=== PATIENT | female | born 1975 | race Caucasian/White ===

== ENCOUNTER 2019-08-08 14:12 | Emergency (ER) | payer OTHER, SELFPAY ==
[2019-08-08 14:27] VITALS: BP 110/68; PULSE 84; RESP 16; TEMP 37.3; O2SAT 99
--- NOTE | 2019-08-08 14:32 | ED.GENADULT ---
HPI - General Adult General Chief complaint: Extremity Injury, Upper Stated complaint: right thigh pain/sore throat Time Seen by Provider: 08/08/19 14:33 Source: patient and RN notes reviewed Limitations: no limitations History of Present Illness HPI narrative: This is a 44 years old female presented office for evaluation of right thigh injury yesterday morning. Stated she was moving a couch and dropped on her right thigh. Complaint of pain however she able to bear weight. Denies any numbness or tingling in her lower extremities. Denies history of right thigh surgery or fracture. Admits to history of right foot fracture from rolling her ankle about 3 years ago. No treatment prior to arrival. Related Data Home Medications Medication Instructions Recorded Confirmed No Home Medications 08/08/19 08/08/19 Allergies Allergy/AdvReac Type Severity Reaction Status Date / Time Iodinated Contrast Media Allergy Severe Rash Verified 08/08/19 14:29 Review of Systems Review of Systems: Narrative: CONSTITUTIONAL: Denies feeling ill ENT: Reports sore throat with slight sinus congestion CARDIOVASCULAR: Denies chest pain RESPIRATORY: Denies cough GASTROINTESTINAL: Denies abdominal pain, nausea, vomiting, diarrhea. GENITOURINARY: Denies urinary symptoms SKIN: Reports bruising on her right thigh MUSCULOSKELETAL: Reports right thigh pain with knot and bruising where the injury happended. NEUROLOGIC: Denies lightheaded PMFSH Social History Social History (Updated 08/08/19 @ 14:48 by NABILA Thomas) Smoking status: Never smoker Gender identity (if verbalized by the patient): Female Comments At time of signature, I agree with nursing past medical, surgical, social and family history. There is no relevant family history pertinent to the presenting complaint. Exam Narrative: Exam Narrative: GENERAL: This is a well-nourished, well-developed patient, in no apparent distress. EYES: Sclera clear/white. Vision is grossly intact. NOSE: External nose normal with no obvious nasal discharge, nares without redness, no rhinorrhea. THROAT: Mucous membranes moist, posterior pharynx clear. NECK: Neck supple, non-tender without lymphadenopathy, masses or thyromegaly. CARDIOVASCULAR: Regular rate and rhythm without murmurs, gallops, or rubs. RESPIRATORY: Clear to auscultation. Breath sounds equal bilaterally. No wheezes, rales, or rhonchi. GASTROINTESTINAL: Abdomen soft, non-tender, nondistended. Bowel sounds are active. No guarding. NEURO: awake, alert, and oriented to person, place and time. There were no obvious focal neurologic abnormalities. Steady gait EXTREMITIES: Bilateral legs is symmetrical without obvious deformity. Right mid anterior thigh noted a localized ecchymosis with tenderness to palpation. No erythema or warmth to touch. No obvious skin abrasion. Normal bilateral knees reflex. Deepak Coma Scale Eye Opening: Spontaneous 4 [place] Coma Scale Motor: Obeys Commands 6 Deepak Coma Scale Verbal: Oriented 5 Course Vital Signs Vital signs: Vital Signs Temperature 99.1 F 08/08/19 14:27 Pulse Rate 84 08/08/19 14:27 Respiratory Rate 16 08/08/19 14:27 Blood Pressure 110/68 08/08/19 14:27 Pulse Oximetry 99 08/08/19 14:27 Temperature 99.1 F 08/08/19 14:27 Pulse Rate 84 08/08/19 14:27 Respiratory Rate 16 08/08/19 14:27 Blood Pressure 110/68 08/08/19 14:27 Pulse Oximetry 99 08/08/19 14:27 Medical Decision Making MDM Narrative Medical decision making narrative: X-ray is not indicated at this time since injury appears superficial with no obvious deformity without excruciating pain. Patient agree with plan. Discharge instructions reviewed with patient, as well as provided in writing per nursing staff. The instructions also include specific and strict return/GO TO THE ER as well as f/u information. All questions have been answered, and the patient deny any further questions wi
== END 2019-08-08 14:54 | disposition home or self-care (01) ==
PROVIDERS: Emergency Provider Nurse Practitioner; PCP Nurse Practitioner Adult Health
DX: S70.11XA Contusion of right thigh, initial encounter (principal); W20.8XXA Other cause of strike by thrown, projected or falling object, initial encounter
CPT/HCPCS: 99212; G0463

== ENCOUNTER → 2021-05-10 03:29 | Outpatient (CLI) | payer OTHER, SELFPAY ==
[2021-05-11 12:59] LABS: SARS-CoV-2 RNA PCR Negative (Negative)
== END ==
PROVIDERS: PCP Nurse Practitioner Adult Health; Visit Provider Podiatrist Foot & Ankle Surgery
DX: Z01.812 Encounter for preprocedural laboratory examination (principal); Z20.822 Contact with and (suspected) exposure to COVID-19
CPT/HCPCS: C9803; U0003; U0005

== ENCOUNTER 2021-05-11 01:10 | Day surgery (SDC) | payer OTHER, SELFPAY ==
[2021-05-03 13:08] VITALS: BMI 32.9
--- NOTE | 2021-05-03 13:20 | PC.NURSE ---
Report to the Outpatient Waiting Room, entrance under the green pavilion located off [facility], at time 1200 on date 05/11/21. OR Time: 1400. - You and your visitor will be asked a series of questions to screen for COVID 19 for your protection. - A mask is required within the hospital. - Only one visitor is allowed at this time. Patient visitors will be guided where to wait when not with patient. Preoperative COVID Testing Requirements: No COVID Test needed if: (proof is required; if not received patient will have Rapid Test prior to entry) - Patient has received COVID Vaccine at least 14 days prior to procedure date or - Patient has positive COVID test result within last 90 days of surgery date. COVID Test needed if above criteria is not met If not COVID vaccinated a COVID test must be conducted within 72 hours of surgery and patient is asked to isolate self from time of testing until procedure. You will go to the [facility] for your COVID testing. The [facility] is located at the corner of [address] [facility]. COVID TEST 05/10 [facility] 0730 You will only be called if COVID results are positive and your surgeon may reschedule your elective surgery date. Patients may have clear liquids (water, carbonated beverages, clear teas, apple juice) until 3 hours prior to surgery with a maximum of 20 ounces. - No food from midnight until time of surgery - Infants may have breast milk until 4 hours before surgery, infant formula 6 hours prior to surgery. - Children will be allowed to drink immediately following surgery. If applicable, please bring a bottle or sippy cup to assist with drinking. Juice, water, soda, and popsicles are readily available. For infants on formula, please bring formula the day of surgery. Pacifiers are allowed. Take the following medications with a SIP of water the morning of surgery: NONE Medications to discontinue per physician: EXCEDRNADIR MIGRAINE Date to take last dose: PER DR. DUMONT (5 DAYS PRE-OP) Please no make-up, nail malay, hairspray, perfume, deodorant, or body powder the day of surgery. No jewelry (including any body piercings) or valuables the day of surgery, leave them at home. Please take a shower or bath the night before, or the morning of, surgery with an antibacterial soap. Wear comfortable, loose fitting clothing. Children are encouraged to wear pajamas. - Jewelry must be removed prior to entering the operating room. Rings and piercings that are not removed may be cut off. - The hospital will not accept responsibility for valuables. - Please leave all valuables, including medications, at home the day of surgery. If you are going home after surgery, a licensed regional owner operator truck driver must drive you home. - NO public transportation without another adult. - We recommend that an adult stay with you for 24 hours following discharge. - We also recommend that you do not drive, make important decision, drink alcoholic beverages, or take any drugs that were not prescribed by your health care provider for at least 24 hours after your discharge time. For Pediatric surgeries, we recommend two adults accompany the child home (only one inside the building at this time). Follow any additional instructions given to you from your surgeon. Telephone instructions given to JAMI SANCHEZ and asked if any additional questions and then verbalized understanding. Patient advised to call surgeon office or pre surgery nurse liaison [phone] if any additional questions.
[2021-05-11] VITALS (9 sets, daily range): BP systolic 112–155; BP diastolic 74–95; PULSE 67–96; RESP 12–18; TEMP 36.2–36.3; O2SAT 99–100
--- NOTE | 2021-05-11 07:23 | WPDHPUPDATE1 ---
History and Physical Update Update Date/Time: 05/11/21 07:23 History and Physical has been reviewed, including an updated exam of the patient. There are NO changes in the patient's condition. Risks, benefits, and alternatives have been discussed and questions answered. Patient agrees to proceed with procedure.
[2021-05-11] MEDS: LACTATED RINGERS 1,000 ML 30 ML IV CONT ×2 (13:18→15:48)
--- NOTE | 2021-05-11 13:28 | WPDANESEPPF ---
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 PMFSH Past Medical History Medical History (Updated 05/11/21 @ 13:28 by Mihai Vazquez MD) Obesity Surgical History Surgical History (Updated 05/11/21 @ 13:29 by Mihai Vazquez MD) History of appendectomy History of bladder surgery History of cholecystectomy Social History Social History Smoking status: Never smoker Alcohol intake: current Alcohol use details: COUPLE/MONTH Substance use: never Substance use type: does not use Gender identity (if verbalized by the patient): Female Spiritual care concerns: No Anes - Eval Final PreProcedure Day of Procedure 05/11/21 13:28 Patient weight: obese Heart: regular rate and rhythm Lungs: clear to auscultation Airway: Mallampati scale class II Neurological: alert and oriented Last oral intake: >/= 8 hours ASA classification: II Emergent: no Anesthetic plan: proceed Anesthesia type and monitoring: general LMA and standard monitoring Results Review: All pre-operative results and documents have been reviewed as part of the pre-operative evaluation. Informed Consent: The patient's anesthetic plan and its attendant risks and benefits were discussed with the patient/family/POA. Questions were solicited and answers provided to the satisfaction of the patient/family/POA.
[2021-05-11] MEDS: ceFAZolin 2 GM/D5W 50 ML 2 GM/50 ML BAG IVPB (14:07)
[2021-05-11] MEDS: LIDOCAINE HCL 2% PF INJ 5 ML VIAL 10 ML INFILTRATE (14:14)
--- NOTE | 2021-05-11 14:57 | P.OP_ITS ---
Procedure Note - Detailed Date of Procedure 05/11/21 Pre-op Diagnosis Worley's neuroma right foot Post-op Diagnosis same Procedure Performed Excision of Mortons Neuroma right foot Surgeon Ethan Pierson JR, DPM Anesthesia general and local Description of Procedure Under mild sedation, the patient was brought in to the operating room, placed on the operating table in the supine position. A pneumatic ankle tourniquet was placed about the patient's right ankle. Following general anesthesia, local anesthesia was obtained about the right foot with 2% Lidocaine plain and 0.5% Marcaine plain. The foot was then scrubbed, prepped, and draped in the usual aseptic manner. An Esmarch bandage was then used to exsanguinate the patient's foot and the pneumatic ankle tourniquet was then inflated. An incision was made along the dorsal 3rd inter metatarsal space. All bleeders were cauterized as necessary. The Deep transverse intermetatarsal ligament was severed. Next Dissection was continued deep to the plantar nerve which was hypertrophied and amorphous. It was dissected proximal to the central metatarsal shaft area and transected next the distal branches were dissected and transected to the affected third and fourth digits. The neural tissue was sent for gross and histo. The deep subcutaneous tissue was reapproximated with 3.0 Vicryl and the skin was reapproximated with 4.0 Monocryl. Upon completion of the procedure, the dorsal incision was dressed with Steri- Strips, Adaptic, 4x4s, Kerlix, and Coban. The pneumatic ankle tourniquet was then deflated and a prompt hyperemic response was noted to all digits of the right foot. The surgical shoe was then applied. The patient did very well with the procedure and the anesthesia. She was transferred to the recovery room with vital signs stable and vascular status intact to all toes of the affected foot. Following a period of postoperative monitoring, the patient will be discharged home on the following written and oral postoperative instructions: 1. The patient should keep the dressing clean, dry, and intact. Use a cast protector bag with showers. 2. The patient will be strictly protected weight bearing with a surgical shoe. 3. Patient should ice and elevate the right foot when at rest. 4. The patient is to contact Dr. Pierson for all postop care and if any problems arise. 5. Prescriptions were written for Percocet 5/325 dispensed 40 to be taken 1 p.o. q.4-6 hours as needed for severe pain. Estimated Blood Loss 1 Drains No Packing No Pathology yes Complications No immediate complications Condition stable Disposition same day
[2021-05-11] MEDS: SCOPOLAMINE 1.5 MG PATCH TRANSDERM (15:20)
[2021-05-11] MEDS: ONDANSETRON INJ 4 MG/2 ML VIAL IV PUSH (15:20)
[2021-05-11] MEDS: diphenhydrAMINE HCl INJ 50 MG/ML VIAL 25 MG IV PUSH (15:54)
== END 2021-05-11 16:59 | disposition home or self-care (01) ==
PROVIDERS: PCP Nurse Practitioner Adult Health; Visit Provider Podiatrist Foot & Ankle Surgery
PROC: (CPT 28080; principal; 2021-05-11 14:00)
DX: G57.61 Lesion of plantar nerve, right lower limb (principal); E66.9 Obesity, unspecified; Z68.33 Body mass index [BMI] 33.0-33.9, adult
CPT/HCPCS: 28080; 88304; A9270; J0690; J1100; J1200; J2250; J2270; J2405; J2704; J7120

== ENCOUNTER 2021-05-11 11:28 | Outpatient (CLI) | payer OTHER, SELFPAY ==
[2021-05-11 12:09] LABS: EDCOVIDSCREEN Negative (Negative)
== END 2021-05-11 11:29 | disposition home or self-care (01) ==
LOC: ANHSURGERY 11:31
PROVIDERS: PCP Nurse Practitioner Adult Health; Visit Provider Podiatrist Foot & Ankle Surgery
DX: Z01.812 Encounter for preprocedural laboratory examination (principal); Z20.822 Contact with and (suspected) exposure to COVID-19
CPT/HCPCS: 87426; C9803

== ENCOUNTER 2021-08-27 10:27 | Outpatient (CLI) | payer OTHER, SELFPAY ==
[2021-08-27 12:13] LABS: Influenza Control Positive
== END 2021-08-27 10:28 | disposition home or self-care (01) ==
PROVIDERS: PCP Nurse Practitioner Adult Health; Visit Provider Nurse Practitioner Adult Health
DX: R51.9 Headache, unspecified (principal)
CPT/HCPCS: 87804

== ENCOUNTER 2022-02-15 16:23 | Emergency (ER) | payer OTHER, SELFPAY ==
[2022-02-15 16:32] VITALS: BP 118/76; PULSE 64; RESP 18; TEMP 36.7; O2SAT 100
--- NOTE | 2022-02-15 16:56 | ED.WOUNDLAC ---
HPI - Wound/Laceration General Chief Complaint: Wound/Laceration Stated Complaint: Laceration Finger to Left Hand Time Seen by Provider: 02/15/22 16:52 Source: patient, RN notes reviewed and old records reviewed Mode of arrival: ambulatory Limitations: no limitations History of Present Illness HPI narrative: 46 year old female who presents to [facility] care with complaints of cutting left index finger last night with knife while cutting fat off of pork loin. Patient has avulsion type of laceration to anterior aspect of left 2nd index finger anterior aspect mid finger with stated intermittent bleeding and discomfort. Small cut also noted to proximal aspect superficial with no bleeding noted.Patient reports she is here due to intermittent bleeding from tissue. . Onset (ago): day(s) (last night ) Location: other (left 2nd finger) Patient tetanus UTD: Yes Treatments prior to arrival: bandage and other (cleansing) Related Data Allergies Allergy/AdvReac Type Severity Reaction Status Date / Time Iodinated Contrast Media Allergy Severe Rash Verified 02/15/22 16:38 Review of Systems Review of Systems: CONSTITUTIONAL: Denies fever, chills, or sweats. EYES: Denies visual changes, redness, or discharge. ENT: Denies rhinorrhea, congestion, sore throat, or otalgia. CARDIOVASCULAR: Denies chest pain, palpitations, or edema. RESPIRATORY: Denies cough or dyspnea. GASTROINTESTINAL: Denies abdominal pain, nausea, vomiting, or diarrhea. GENITOURINARY: Denies dysuria or hematuria. SKIN: Denies rash or itching.aviulsion laceration to 2nd left index finger anterior mid aspect, small superficial cut at proximal aspect of anterior finger also. MUSCULOSKELETAL: Denies back pain, joint pain, or myalgia. NEUROLOGIC: Denies headache, numbness, or weakness. PSYCHIATRIC: Denies anxiety or depression. All systems reviewed & are unremarkable except as noted in HPI and below PMFSH Past Medical History Medical History (Updated 02/19/22 @ 08:41 by Gina Benitez NP) Hx of migraines Surgical History Surgical History History of appendectomy History of bladder surgery History of cholecystectomy Social History Social History Smoking status: Never smoker Alcohol intake: current Alcohol use details: COUPLE/MONTH Substance use: never Substance use type: does not use Gender identity (if verbalized by the patient): Female Spiritual care concerns: No Comments At time of signature, agree with nursing past medical, surgical, social and family history. There is no relevant family history pertinent to the presenting complaint Exam Narrative: GENERAL: Well-appearing, well-nourished, and in no acute distress. HEAD: Normocephalic, atraumatic. EYES: PERRLA and EOMI. ENT: Nares clear, no rhinorrhea or epistaxis. Mucous membranes moist.TM's normal with good light reflex throat pink no swelling NECK: Supple.no lymphadenopathy CHEST: Clear to auscultation. No respiratory distress.SAO2 100% on room air HEART: Regular rate and rhythm. No murmur heard. Normal peripheral pulses. ABDOMEN: Soft, nontender, nondistended, normal active bowel sounds. EXTREMITIES: Normal range of motion. No edema. SKIN: Warm, dry, no rash. superficial cut proximal 2nd finger anterior aspect, avulsion of skin 0.5cm diameter with no active bleeding at this time, patient reports that she has had intermittent bleeding from area today,states area is painful. minimal depth of wound noted. NEURO: No focal deficits. Alert and oriented x3. Course Course Level of Care: Express Care Visit Vital Signs Vital signs: Vital Signs Temperature 36.7 C 02/15/22 16:32 Pulse Rate 64 02/15/22 16:32 Respiratory Rate 18 02/15/22 16:32 Blood Pressure 118/76 02/15/22 16:32 Pulse Oximetry 100 02/15/22 16:32 Oxygen Delivery Room Air 02/15/22 16:32 Temperature 36.7 C 0
== END 2022-02-15 17:18 | disposition home or self-care (01) ==
PROVIDERS: Emergency Provider Registered Nurse; PCP Nurse Practitioner Adult Health
DX: S61.201A Unspecified open wound of left index finger without damage to nail, initial encounter (principal); W26.0XXA Contact with knife, initial encounter; Y93.G1 Activity, food preparation and clean up
CPT/HCPCS: 99213; G0463

== ENCOUNTER 2023-04-14 12:49 | Emergency (ER) | payer OTHER, SELFPAY ==
[2023-04-14] VITALS (18 sets, daily range): BP systolic 110–120; BP diastolic 77–98; PULSE 61–79; RESP 12–20; TEMP 36.2; O2SAT 97–100
--- NOTE | ~2023-04-14 | XR_ITS ---
EXAMINATION: XR finger 1st RT min 2V DATE: 04/14/2023 13:10 INDICATION: Right thumb injury. TECHNIQUE: 3 views of right thumb were obtained. COMPARISON: None. FINDINGS: There is dorsal dislocation of first proximal phalanx with respect to the metacarpal. No fr acture. Joint spaces are normal. IMPRESSION: 1. Dislocation of first metacarpophalangeal joint. Reviewed, dictated and finalized at location E. EF WORKER
--- NOTE | ~2023-04-14 | XR_ITS ---
XR finger 1st RT min 2V 04/14/2023 14:31 Indication: Post reduction of the thumb. Procedure: 3 views right first finger Comparison: 04/14/2023 Findings: Interval reduction of the right first metacarpal phalangeal joint. There is a small avulsio n fracture at the base of the proximal phalanx. No significant soft tissue abnormality. No foreign ryan dies. Impression: 1: Small avulsion fracture base of the right first proximal phalanx with interval reduction at the me tacarpal phalangeal joint. Reviewed, dictated and finalized at location B. CULTURAL CONSULTANT Impression: 1: Small avulsion fracture base of the right first proximal phalanx with interv al reduction at the metacarpal phalangeal joint.
[2023-04-14] MEDS: HYDROcodone/acetaminophen (*CRX) 5-325 MG TABLET 1 TAB PO (13:38)
--- NOTE | 2023-04-14 13:55 | ED.UPPEXIN ---
HPI - Extremity Injury (Upper) General Chief Complaint: Extremity Injury, Upper Stated Complaint: right thumb injury Time Seen by Provider: 04/14/23 13:19 Source: patient and other (partner) Limitations: no limitations History of Present Illness HPI narrative: This is a 48 yo right hand dominant female who presents with an injury to her right upper extremity. She was picking something up at someone's house and tripped and fell on her outstretched hand landing on concrete. She now presents with deformity to her right thumb. She endorses paresthesias in the digit. She had otherwise been in her baseline state of health. Related Data Allergies Allergy/AdvReac Type Severity Reaction Status Date / Time Iodinated Contrast Media Allergy Severe Rash Verified 04/14/23 12:58 [facility] Past Medical History Medical History (Updated 04/15/23 @ 00:01 by Hina Levin) Hx of migraines Surgical History Surgical History History of appendectomy History of bladder surgery History of cholecystectomy Social History Social History (Updated 04/15/23 @ 07:26 by Jaimee Kwan MD) Smoking status: Never smoker Alcohol intake: current Alcohol use details: COUPLE/MONTH Substance use: never Substance use type: does not use Living arrangements: with family Gender identity (if verbalized by the patient): Female Spiritual care concerns: No (erum/cheondoism/spirituality are important to patient - active in taoism) Exam Const: General: healthy appearing, no acute distress and alert; No diaphoretic or ill appearing Nutritional Appearance: well nourished Orientation/consciousness: patient oriented x3 Limitations: no limitations HENMT: Head: normal to inspection, no contusions, no hematomas and no lacerations Other: gross auditory acuity intact Eyes: Direct Ophthalmoscopy: no photophobia Neck: Neck: normal visual inspection Resp: Effort & Inspection: normal respiratory effort Other: speaking in full sentences Cardio: Rate: regular rate Other: 2+ radial pulse; 1+ ulnar pulse; brisk capillary refill in all digits including thumb Skin: General skin exam: normal color, no jaundice and no pallor Rashes: no rashes Wounds: no wounds Neuro: General: patient oriented x3 Speech: normal speech Extrem: Other: Focused examination of right hand: Gross deformity is noted at thumb. Skin is intact without open wounds. No tenderness over the wrist or at snuffbox. Sensation diminished in thumb but brisk capillary refill. White linear injury noted to left thumb nail bed at the nail plate. No extension into a lunula. Nail not avulsed and injury does not involve the matrix. No subungal hematoma. Perinychium/paraonychia normal. Psych: Mental Status: mental status grossly normal Affect: normal affect and No Sad affect present Attitude: cooperative Course Vital Signs Vital signs: Vital Signs Temperature 97.1 F L 04/14/23 12:52 Pulse Rate 75 04/14/23 12:52 Respiratory Rate 20 04/14/23 12:52 Blood Pressure 119/81 04/14/23 12:52 Pulse Oximetry 98 04/14/23 12:52 Oxygen Delivery Room Air 04/14/23 12:52 Temperature 97.1 F L 04/14/23 12:52 Pulse Rate 77 04/14/23 15:31 Respiratory Rate 16 04/14/23 15:31 Blood Pressure 118/98 H 04/14/23 15:01 Pulse Oximetry 98 04/14/23 15:19 Oxygen Delivery Room Air 04/14/23 12:52 Procedures Orthopedic Joint Reduction Joint #1: Orthopedic Joint Reduction Date: 04/14/23 Side: right Joint Reduction Location: finger (digit #1 (thumb)) Analgesia: hematoma block and nerve block Pre-Procedure Neuro Vascular Exam: abnormal (diminished sensation throughout finger) Local Anesthesia: lidocaine 1% Amount of anesthesic used (mL): 10 Technique used: traction/counter-traction and direct manipulation Post-reduction neuro exam: no mckeon
== END 2023-04-14 15:41 | disposition home or self-care (01) ==
PROVIDERS: Emergency Provider Student in an Organized Health Care Education/Training Program; PCP Nurse Practitioner Family
DX: S62.511A Displaced fracture of proximal phalanx of right thumb, initial encounter for closed fracture (principal); W01.0XXA Fall on same level from slipping, tripping and stumbling without subsequent striking against object, initial encounter
CPT/HCPCS: 29130; 73140; 99284; A9270

== ENCOUNTER 2023-08-04 08:33 | Emergency (ER) | payer OTHER, SELFPAY ==
--- NOTE | ~2023-08-04 | XR_ITS ---
EXAMINATION: XR abdomen/kub 1V DATE: 08/04/2023 09:58 INDICATION: 4 mm stone at the right ureterovesicular junction TECHNIQUE: A supine view of the abdomen on 2 radiographs was obtained. COMPARISON: None. FINDINGS: The 4 mm stone at the right ureterovesicular junction is clearly visualized in the pelvis. No other u rolithiasis. Normal bowel gas pattern. Cholecystectomy clips in right upper quadrant. IMPRESSION: 1. 4 mm stone at the right ureterovesicular junction. Reviewed, dictated and finalized at location B.
--- NOTE | ~2023-08-04 | CT_ITS ---
EXAMINATION: CT abdomen pelvis wo con DATE: 08/04/2023 09:27 INDICATION: Right flank pain TECHNIQUE: Computed tomography (CT) of the abdomen and pelvis was performed without intravenous contr ast. Automated exposure control and iterative reconstruction technique were employed. The dose-length product was 266.73 mGy-cm. COMPARISON: None FINDINGS: Lung bases are clear. Heart size is normal. No pericardial or pleural effusion. Small sliding-type hi atal hernia. Cholecystectomy clips the gallbladder fossa. Liver, spleen, pancreas, bilateral adrenal glands and left kidney are normal. There is mild right hydroureteronephrosis extending to a 4 mm ston e at the right ureterovesicular junction. No other evident urolithiasis. No abnormal bowel wall thick ening or obstruction. The appendix is not visualized. No pericecal inflammatory change to suggest acu te appendicitis. Bladder, uterus and bilateral adnexa are unremarkable. No free intraperitoneal gas o r fluid. No pathologically enlarged abdominal or pelvic lymphadenopathy. Mild bilateral sacroiliac os teoarthritis. IMPRESSION: 1. 4 mm stone at the right ureterovesicular junction with mild right hydroureteronephrosis. Reviewed, dictated and finalized at location B. IMPRESSION: 1. 4 mm stone at the right ureterovesicular junction with mild right hydrourete ronephrosis.
[2023-08-04 08:33] VITALS: BP 142/82; PULSE 87; RESP 17; TEMP 36.2; O2SAT 100
--- NOTE | 2023-08-04 09:10 | ED.FEMALEGU ---
HPI - Female Genitourinary General Chief complaint: Urogenital-Female Stated complaint: uti symptoms Time Seen by Provider: 08/04/23 08:58 Source: patient Mode of arrival: ambulatory Limitations: no limitations History of Present Illness HPI Narrative: Patient is a 48-year-old female who presents the ED with report of urinary symptoms. Patient reports she first developed urinary frequency and urgency yesterday. She went to a local urgent care and was told there was microscopic blood in her urine. She was started on Macrobid for UTI. Patient has been taking this as prescribed, but denies improvement. Today, patient went to work and developed pain in her right flank region. Pain is fairly severe. She tried taking ibuprofen without much improvement. She then prompted here. Denies radiation of the pain around to her abdomen. Denies nausea, vomiting, dysuria, gross hematuria, fevers. Related Data Allergies Allergy/AdvReac Type Severity Reaction Status Date / Time Iodinated Contrast Media Allergy Severe Rash Verified 05/21/23 14:04 Review of Systems Review of Systems: CONSTITUTIONAL: Denies fever, chills, or sweats. GASTROINTESTINAL: Denies abdominal pain, nausea, vomiting, or diarrhea. GENITOURINARY: See HPI. MUSCULOSKELETAL: See HPI. All systems reviewed & are unremarkable except as noted in HPI and below PMFSH Past Medical History Medical History Hx of migraines Surgical History Surgical History History of appendectomy History of bladder surgery History of cholecystectomy History of endometrial ablation Family History Family History Father Hypertension Mother Diabetes mellitus Migraine Social History Social History Smoking status: Never smoker Alcohol intake: current Alcohol use details: COUPLE/MONTH Substance use: never Substance use type: does not use Lack of Transportation: No Lack of Food: Never True Current Housing: I Have Housing Concerned About Future Housing: No Difficulty Paying Gas/Electric Bills: No Difficulty Paying for Meds: No Currently Unemployed: No Education: Master's Degree or Higher Difficulty w/ Childcare or Family Care: No Living arrangements: with family Occupation/Education: occupation Additional occupation/education comments: teacher Gender identity (if verbalized by the patient): Female Spiritual care concerns: No (erum/protestant/spirituality are important to patient - active in yarsanism) Exam Narrative: GENERAL: Well appearing, BMI 32.7, non-toxic, in no acute distress. HEAD: Normocephalic, atraumatic. RESPIRATORY: Airway patent, respirations nonlabored. Clear to auscultation bilaterally, no rales, rhonchi, wheezing. CARDIOVASCULAR: Regular rate and rhythm without murmurs, rubs, or gallops. ABDOMINAL: Soft, nontender. Normoactive BS. Mild +CVA tenderness to percussion on R. MUSCULOSKELETAL: Moves all extremities. No gross deformities. TTP throughout R mid to lower thoracic/lumbar region. No significant midline spinal tenderness. SKIN: Warm, dry, normal color. NEURO: A&O X3. Speech clear. PSYCHIATRIC: Appropriate mood and affect. Normal interaction. Course Vital Signs Vital signs: Vital Signs Temperature 97.2 F L 08/04/23 08:33 Pulse Rate 87 08/04/23 08:33 Respiratory Rate 17 08/04/23 08:33 Blood Pressure 142/82 H 08/04/23 08:33 Pulse Oximetry 100 08/04/23 08:33 Oxygen Delivery Room Air 08/04/23 08:33 Temperature 97.2 F L 08/04/23 08:33 Pulse Rate 87 08/04/23 08:33 Respiratory Rate 17 08/04/23 08:33 Blood Pressure 142/82 H 08/04/23 08:33 Pulse Oximetry 100 08/04/23 08:33 Oxygen Delivery Room Air 08/04/23 08:33 MDM - Female Genitourinary
[2023-08-04 09:12] LABS: Basophils Percent Auto 0.7 % (0.2-1.2); Eosinophils Absolute Auto 0.1 K/mm3 (0-0.3); Eosinophils Percent Auto 1.8 % (0-4.4); Hematocrit 39.7 % (37.0-47.0); Hemoglobin 12.9 g/dL (12.0-15.0); Immature Granulocyte Absolute 0.02 K/mm3 (0.00-0.031); Immature Granulocyte Percent A 0.3 % (0-0.5); Lymphocytes Absolute Auto 1.56 K/mm3 (0.9-3.2); Lymphocytes Percent Auto 25.8 % (18.3-44.2); Mean Corpuscular HGB Conc 32.5 g/dl (32-36); Mean Corpuscular Hemoglobin 31.1 pg (26-34); Mean Corpuscular Volume 95.7 fl (80-100); Monocytes Absolute Auto 0.4 K/mm3 (0.1-0.6); Monocytes Percent Auto 7.1 % (2.6-8.5); Neutrophils Absolute Auto 3.9 K/mm3 (1.3-6.7); Neutrophils Percent Auto 64.3 % (45.5-73.1); Platelet Count Result 214 k/mm3 (150-375); Red Blood Count 4.15 M/mm3 (4.2-5.4); White Blood Count 6.1 K/mm3 (4.5-10.0)
[2023-08-04 09:21] LABS: Alanine Aminotransferase 23 U/L (6-35); Albumin Level 4.1 g/dL (3.5-5.1); Alkaline Phosphatase 62 U/L (38-126); Anion Gap 1 mmol/L (8-16); Aspartate Amino Transferase 24 U/L (14-36); Bilirubin,Total 0.5 mg/dL (0.2-1.3); Blood Urea Nitrogen 13 mg/dL (7-17); Calcium 8.7 mg/dL (8.4-10.2); Carbon Dioxide 27 mmol/L (22-30); Chloride 107 mmol/L (98-107); Estimated CRCL calculation 65 ml/min; Estimated Glomerular Filt Rate > 60; Glucose 109 mg/dL (65-110); Potassium 3.8 mmol/L (3.4-5.0); Sodium 135 mmol/L (137-145)
[2023-08-04 09:36] LABS: Appearance Urine Clear (Clear); Bacteria Urine None Seen /hpf; Bilirubin Urine Negative (Negative); Blood Urine 3+ (Negative); Color Urine Dark Yellow (Yellow); Glucose Urine UA Negative (Negative); Ketones Urine Trace mg/dL (Negative); Leukocyte Esterase Ur Trace LEU/UL (Negative); Need Manual Microscopic Reviewed; Nitrate Urine Negative (Negative); Protein Urine Negative (Negative); RBC Urine 51-100 /hpf (0-2); Specific Grav Ur 1.028 (1.001-1.035); Squamous Epithelial Cell Urine Few /hpf (Few); Urobilinogen Urine 0.2 mg/dL (<2.0)
[2023-08-04] MEDS: SODIUM CHLORIDE 0.9% IV 1,000 ML 999 ML IV CONT (09:38)
[2023-08-04] MEDS: ONDANSETRON INJ 4 MG/2 ML VIAL IV PUSH (09:39)
[2023-08-04] MEDS: MORPHINE SULFATE (*CRX) 4 MG/ML INJ IV PUSH (09:39)
[2023-08-04 09:49] LABS: Add Urine Microscopic? YES
[2023-08-04 11:05] VITALS: BP 138/78; PULSE 80; RESP 16; O2SAT 100
== END 2023-08-04 11:07 | disposition home or self-care (01) ==
PROVIDERS: Emergency Medicine; Emergency Provider Physician Assistant; PCP Nurse Practitioner Family
DX: N13.2 Hydronephrosis with renal and ureteral calculous obstruction (principal); R82.998 Other abnormal findings in urine; Z90.49 Acquired absence of other specified parts of digestive tract
CPT/HCPCS: 36415; 74018; 74176; 80053; 81001; 85025; 87086; 96361; 96365; 96375; 99284; J0696; J2270; J2405; J7030

== ENCOUNTER 2023-09-01 07:08 | Outpatient (CLI) | payer OTHER, SELFPAY ==
[2023-09-01 07:43] LABS: Hemoglobin 13.7 g/dL (12.0-15.0); Mean Corpuscular HGB Conc 32.6 g/dl (32-36); Mean Platelet Volume 10.2 fl (7.4-10.4); Platelet Count Result 271 k/mm3 (150-375); Red Blood Count 4.42 M/mm3 (4.2-5.4); Red Cell Distribution Width 12.3 % (11.5-14.5); White Blood Count 6.6 K/mm3 (4.5-10.0)
[2023-09-01 07:59] LABS: Alanine Aminotransferase 25 U/L (6-35); Albumin Level 4.4 g/dL (3.5-5.1); Alkaline Phosphatase 63 U/L (38-126); Anion Gap 7 mmol/L (4-12); Aspartate Amino Transferase 22 U/L (14-36); Bilirubin,Total 0.5 mg/dL (0.2-1.3); Blood Urea Nitrogen 16 mg/dL (7-17); Calcium 9.4 mg/dL (8.4-10.2); Carbon Dioxide 27 mmol/L (22-30); Chloride 104 mmol/L (98-107); Cholesterol 148 mg/dL (0-200); Estimated Glomerular Filt Rate > 60; Glucose 107 mg/dL (65-110); HDL Direct 59 mg/dL; Sodium 138 mmol/L (137-145); Triglycerides 72 mg/dL (<150)
[2023-09-01 08:10] LABS: LDL Cholesterol Direct 83 mg/dL
== END 2023-09-01 07:09 | disposition home or self-care (01) ==
LOC: ANHLAB 07:08
PROVIDERS: PCP Nurse Practitioner Adult Health; Visit Provider Nurse Practitioner Adult Health
DX: Z13.9 Encounter for screening, unspecified (principal)
CPT/HCPCS: 36415; 80053; 80061; 84443; 85027

== ENCOUNTER 2024-11-23 13:37 | Outpatient (CLI) | payer OTHER, SELFPAY ==
--- NOTE | ~2024-11-23 | MR_ITS ---
MRI of the left shoulder Technique: Axial proton-density fat-sat images, coronal proton density fat-sat and T2 fat-sat images, and sagittal T1-weighted and T2 fat-sat images were acquired. Clinical History: Rotator cuff tear Findings: There is minimal AC joint degenerative change. Coracoclavicular, coracoacromial, and coraco humeral ligament are intact. Supraspinatus and infraspinatus tendons are intact, without partial or full-thickness tear. Subscapul wood tendon is intact. Tendon of the long head of the biceps is intact. There is mild background rota tor cuff tendinosis. No labral tear seen. Inferior glenohumeral ligament is intact. No degenerative change or effusion of the glenohumeral join t. No fluid distention of the subacromial/subdeltoid bursa. No muscle atrophy or edema. Impression: Mild rotator cuff tendinosis. No partial or full-thickness tear. Reviewed, dictated and finalized at location . Impression: Mild rotator cuff tendinosis. No partial or full-thickness tear.
== END 2024-11-23 13:38 | disposition home or self-care (01) ==
DX: M75.102 Unspecified rotator cuff tear or rupture of left shoulder, not specified as traumatic (principal)
CPT/HCPCS: 73221